=== PATIENT | female | born 1960 | race American Indian/Alaskan Native ===

== ENCOUNTER 2019-08-09 18:36 | Emergency (ER) | payer BC ==
--- NOTE | 2019-08-09 19:08 | Emergency Department Report ---
Blank Doc - Documentation Documentation: 59-year-old female that presents with abscess. This initial assessment/diagnostic orders/clinical plan/treatment(s) is/are subject to change based on patient's health status, clinical progression and re- assessment by fellow clinical providers in the ED. Further treatment and workup at subsequent clinical providers discretion. Patient/guardians urged not to elope from the ED as their condition may be serious if not clinically assessed and managed. Initial orders include: 1- Patient sent to [facility] for further evaluation and treatment
[2019-08-09 19:09] VITALS: BP 119/75
[2019-08-09] MEDS ORDERED: CLINDAMYCIN 300 MG CAP PO ONE (20:27)
[2019-08-09] MEDS ORDERED: IBUPROFEN 800 MG TAB PO ONE (20:27)
--- NOTE | 2019-08-09 20:35 | Emergency Department Report ---
ED Female HPI - General Chief complaint: Skin/Abscess/Foreign Body Stated complaint: LFT GROIN AREA/PAIN Time Seen by Provider: 08/09/19 19:07 Source: patient, EMS Mode of arrival: Stretcher Limitations: No Limitations - History of Present Illness Initial comments: This is a 59-year-old female presents the ED complaining to some redness and pain to her left inner groin 2 to 3 days. Patient noted that today she noticed it got a little bigger. Patient states she has been soaking in Epson salt and applying heat to the inner groin. Patient denies any fever/chills/nausea vomiting/vaginal discharge/dysuria/pelvic pain/abdominal pain or any other symptoms. - Related Data Previous Rx's Medication Instructions Recorded Last Taken Type Clindamycin [Clindamycin CAP] 300 mg PO TID #21 capsule 08/09/19 Unknown Rx Ibuprofen [Motrin 800 MG tab] 800 mg PO TID #30 tablet 08/09/19 Unknown Rx Sulfamethoxazole/Trimethoprim 1 each PO BID #20 tablet 08/09/19 Unknown Rx [Bactrim DS TAB] Allergies Allergy/AdvReac Type Severity Reaction Status Date / Time No Known Allergies Allergy Unverified 08/09/19 18:47 ED Review of Systems ROS: Stated complaint: LFT GROIN AREA/PAIN Other details as noted in HPI Comment: All other systems reviewed and negative ED Past Medical Hx - Past Medical History Previous Medical History?: No - Surgical History Past Surgical History?: No - Social History Smoking Status: Never Smoker Substance Use Type: None - Medications Home Medications: Home Medications Medication Instructions Recorded Confirmed Last Taken Type Clindamycin [Clindamycin CAP] 300 mg PO TID #21 capsule 08/09/19 Unknown Rx Ibuprofen [Motrin 800 MG tab] 800 mg PO TID #30 tablet 08/09/19 Unknown Rx Sulfamethoxazole/Trimethoprim 1 each PO BID #20 tablet 08/09/19 Unknown Rx [Bactrim DS TAB] ED Physical Exam - General Limitations: No Limitations General appearance: alert, in no apparent distress - Head Head exam: Present: atraumatic, normocephalic - Eye Eye exam: Present: normal appearance - ENT ENT exam: Present: mucous membranes moist - Neck Neck exam: Present: normal inspection - Respiratory Respiratory exam: Present: normal lung sounds bilaterally. Absent: respiratory distress - Cardiovascular Cardiovascular Exam: Present: regular rate, normal rhythm. Absent: systolic murmur, diastolic murmur, rubs, gallop - GI/Abdominal GI/Abdominal exam: Present: soft, normal bowel sounds - External exam: Present: erythema, swelling (Small 1 cm to 2 cm cellulitic area to the groin, nonfluctuant, no pus drainage). Absent: lesions, lacerations, bl eeding - Extremities Exam Extremities exam: Present: normal inspection - Back Exam Back exam: Present: normal inspection - Neurological Exam Neurological exam: Present: alert, oriented X3 - Psychiatric Psychiatric exam: Present: normal affect, normal mood - Skin Skin exam: Present: warm, dry, intact, normal color. Absent: rash ED Course Vital Signs 08/09/19 19:07 Temperature 99.2 F Pulse Rate 117 H Respiratory 18 Rate Blood Pressure 119/75 O2 Sat by Pulse 96 Oximetry ED Medical Decision Making - Medical Decision Making 59-year-old female presents with a small cellulitis 1 cm boil to the inner left groin area. Patient states has been applying heat to area. As this was not fluctuance will treat with antibiotics and continued heat therapy Discussed with patient to follow-up with primary care physician in 3 to 5 days. Vital signs are normal patient is in no acute or respiratory distress. Critical care attestation.: If time is entered above; I have spent that time in minutes in the direct care of this critically ill patient, excluding procedure time. ED Disposition Clinical Impression: Cellulitis of left groin Disposition: DC-01 TO HOME OR SELFCARE Is pt being admited?: No Does the pt Need Aspirin: No Condition: Stable Instructions: Cellulitis (ED) Additional Instructions: Make sure to follow up with the primary care physician as discussed. Take all your medications as you've been prescribed. If you have any worsening symptoms or develop new symptoms please return to ED immediately. Prescriptions: Sulfamethoxazole/Trimethoprim [Bactrim DS TAB] 1 each PO BID #20 tablet Clindamycin [Clindamycin CAP] 300 mg PO TID #21 capsule Ibuprofen [Motrin 800 MG tab] 800 mg PO TID #30 tablet Referrals: PRIMARY CARE, [Primary Care Provider] - 3-5 Days Forms: Accompanied Note, Work/School Release Form(ED) Time of Disposition: 21:39
== END 2019-08-09 21:49 | disposition home or self-care (01) ==
LOC: ED 18:36
DX: L03.314 Cellulitis of groin (principal)
CPT/HCPCS: 99282